=== PATIENT | male | born 1995 | race Caucasian/White ===

== ENCOUNTER 2017-10-18 19:34 | Emergency (ER) | payer SELFPAY ==
[2017-10-18 19:34] VITALS: BMI 19.1
[2017-10-18 19:58] VITALS: O2SAT 100
[2017-10-18 21:04] LABS: BASO % 0.2 % (0.0-2.0); HEMATOCRIT 44.1 % (35.0-51.0); LYMPH # 0.4 K/uL (1.0-4.3); LYMPH % 4.6 % (20.0-40.0); MEAN CELL VOLUME 89.4 fL (80.0-94.0); MEAN CORPUSCULAR HEMOGLOBIN 30.2 pg (27.0-31.0); MEAN CORPUSCULAR HGB CONC 33.8 g/dL (33.0-37.0); MEAN PLATELET VOLUME 7.9 fL (7.2-11.7); MONO # 0.3 K/uL (0.0-0.8); MONO % 3.4 % (0.0-10.0); PLATELET COUNT 264 K/uL (130-400); RED CELL DISTRIBUTION WIDTH 13.1 % (11.5-14.5)
--- NOTE | 2017-10-18 21:12 | C.PDOC ---
History Of Present Illness Yakov Mesa is a 21 year old male, with no past medical history, who presents to the emergency department complaining of abdominal pain associated with nausea and vomit onset since this morning. Patient did not take any medication for current symptoms. He denies recent travels, sick contacts, diarrhea or fever. No further medical complaints. PMD: Clinic,Med Surg Time Seen by Provider: 10/18/17 20:26 Chief Complaint (Nursing): Abdominal Pain History Per: Patient History/Exam Limitations: no limitations Onset/Duration Of Symptoms: Days (x1) Current Symptoms Are (Timing): Still Present Pain Scale Rating Of: 7 Location Of Pain/Discomfort: Epigastric Radiation Of Pain To:: None Associated Symptoms: Nausea, Vomiting. denies: Fever, Diarrhea Recent travel outside of the [place]: No Past Medical History Reviewed: Historical Data, Nursing Documentation, Vital Signs Vital Signs: Last Vital Signs Temp 97.7 F 10/18/17 19:55 Pulse 90 10/18/17 21:18 Resp 18 10/18/17 21:18 BP 106/69 10/18/17 21:18 Pulse Ox 100 10/18/17 21:45 Surgical History: No Surg Hx Family History: States: Unknown Family Hx, Diabetes - Social History Hx Tobacco Use: No Hx Alcohol Use: No Hx Substance Use: No - Immunization History Hx Tetanus Toxoid Vaccination: No Hx Influenza Vaccination: No Hx Pneumococcal Vaccination: No Review Of Systems Except As Marked, All Systems Reviewed And Found Negative. Constitutional: Negative for: Fever Gastrointestinal: Positive for: Nausea, Vomiting, Abdominal Pain. Negative for : Diarrhea Physical Exam - Physical Exam Appears: No Acute Distress Skin: Normal Color, Warm, Dry Head: Atraumatic, Normacephalic Neck: Normal, Normal ROM, Supple Cardiovascular: Rhythm Regular Respiratory: Normal Breath Sounds, No Accessory Muscle Use Gastrointestinal/Abdominal: Bowel Sounds, Tenderness (epigastric), No Guarding, No Rebound Extremity: Normal ROM, No Deformity, No Swelling Neurological/Psych: Oriented x3, Normal Speech ED Course And Treatment - Laboratory Results Result Diagrams: 10/18/17 21:00 10/18/17 21:00 O2 Sat by Pulse Oximetry: 100 (RA) Pulse Ox Interpretation: Normal Medical Decision Making Medical Decision Making: Initial Impression: abdominal pain Initial Plan: --Comp Metabolic Panel --Lipase --CBC w/ differential --Pepcid 20 mg IVP --Toradol 30 mg IVP --Zofran Inj 4 mg IVP --reevaluation- 21:40 -Patient feels better and tolerated PO, he will be discharged home with follow- up with PMD in x2 days. Discussed results and plan with patient who expresses understanding. Counseling was provided regarding the diagnosis and prognosis. All questions answered and there is agreement with the plan to discharge home with instructions. Patient stable for discharge. Return if symptoms persist or worsen. Disposition Counseled Patient/Family Regarding: Studies Performed, Diagnosis, Need For Followup, Rx Given - Disposition Disposition: HOME/ ROUTINE Disposition Time: 21:43 Condition: IMPROVED Additional Instructions: follow up with your doctor in 2 days call to make an appointment take medications as prescribed return to hospital if symptoms worsens or progress Prescriptions: Famotidine [Pepcid] 20 mg PO BID #20 tab Ondansetron ODT [Zofran ODT] 4 mg PO TID PRN #12 odt PRN Reason: Nausea/Vomiting Instructions: Abdominal Pain (ED) Forms: [facility] (Sudanese), General Discharge Instructions - Clinical Impression Clinical Impression: Abdominal pain - Scribe Statement Bakari Wilhelm Provider Attestation: All medical record entries made by the Scribe were at my direction and personally dictated by me. I have reviewed the chart and agree that the record accurately reflects my personal performance of the history, physical exam, medical decision making, and the department course for this patient. I have also personally directed, reviewed, and agree with the discharge instructions and disposition.
[2017-10-18 21:18] VITALS: BP 106/69; PULSE 90; RESP 18
[2017-10-18 21:18] LABS: ALB/GLOB RATIO 1.7 (1.0-2.1); ALKALINE PHOSPHATASE 65 U/L (38-126); ALT/SGPT 33 U/L (21-72); AST/SGOT 22 U/L (17-59); BILIRUBIN,TOTAL 1.2 mg/dL (0.2-1.3); BLOOD UREA NITROGEN 12 mg/dL (9-20); CALCIUM 8.9 mg/dl (8.6-10.4); CARBON DIOXIDE 27 mmol/L (22-30); CHLORIDE 105 mmol/L (98-107); GFR AFRICAN-AMERICAN > 60; GLUCOSE,RANDOM 112 mg/dL (75-110); POTASSIUM 4.1 mmol/L (3.6-5.2); SODIUM 143 mmol/L (132-148); TOTAL PROTEIN 7.4 g/dL (6.3-8.3)
[2017-10-18 21:34] LABS: NEUTROPHIL 91 % (50-75); REACTIVE LYMPHOCYTES 2 % (0-0); TOTAL CELLS COUNTED 100
[2017-10-18 21:47] VITALS: TEMP 98.2
== END 2017-10-18 22:06 | disposition home or self-care (01) ==
LOC: C.ER 19:34
DX: R10.13 Epigastric pain (principal)
CPT/HCPCS: 80053; 83690; 85025; 96374; 96375; 99285; J1885; J2405

== ENCOUNTER 2018-07-19 19:15 | Emergency (ER) | payer OTHER ==
[2018-07-19 19:15] VITALS: BMI 19.1
[2018-07-19 20:08] VITALS: BP 119/77; PULSE 84; TEMP 99.3; O2SAT 100
--- NOTE | 2018-07-19 20:35 | C.PDOC ---
History Of Present Illness 22 yo male w/o significant PMHx come in for evaluation of sore throat, nasal congestion, dry cough gradually developed for past 2 days. Otherwise, pty denies fever, chills, headache, dizziness, drooling, dysphagia, dyspnea, CP, palpitation, diaphoresis, abd. pain, N/V/D, back pain, UTI sx, denies recent travel or known sick contact. AT the time of evaluation, pt is comfortable, not in any apparent distress. Time Seen by Provider: 07/19/18 20:13 Chief Complaint (Nursing): Cough, Cold, Congestion History Per: Patient Past Medical History Reviewed: Historical Data, Nursing Documentation, Vital Signs Vital Signs: Last Vital Signs Temp 99.3 F 07/19/18 20:04 Pulse 84 07/19/18 20:04 Resp 16 07/19/18 20:04 BP 119/77 07/19/18 20:04 Pulse Ox 100 07/19/18 20:04 - Medical History PMH: No Chronic Diseases Family History: States: Unknown Family Hx, Diabetes - Social History Hx Tobacco Use: No Hx Alcohol Use: Yes Hx Substance Use: No - Immunization History Hx Tetanus Toxoid Vaccination: No Hx Influenza Vaccination: No Hx Pneumococcal Vaccination: No Review Of Systems Except As Marked, All Systems Reviewed And Found Negative. Constitutional: Positive for: Malaise. Negative for: Fever, Chills ENT: Positive for: Nose Discharge, Nose Congestion, Throat Pain, Throat Swelling. Negative for: Ear Discharge Respiratory: Positive for: Cough. Negative for: Shortness of Breath, SOB with Excertion, Pleuritic Pain, Sputum, Wheezing Gastrointestinal: Negative for: Nausea, Vomiting, Constipation Genitourinary: Negative for: Dysuria Musculoskeletal: Negative for: Neck Pain Skin: Negative for: Rash Neurological: Negative for: Headache, Dizziness Physical Exam - Physical Exam Appears: Well, Non-toxic, No Acute Distress Skin: Normal Color, Warm, Dry, No Rash Head: Normacephalic Eye(s): bilateral: PERRL Ear(s): Bilateral: Normal Nose: No Flaring, Discharge (scant, clear B/L) Oral Mucosa: Moist, No Drooling Tongue: Normal Appearing Lips: Normal Appearing Throat: Erythema (mod B/L), No Exudate, No Drooling, Other (mild edema B/L) Neck: Supple, Other ((-) meningeal sign) Cardiovascular: Rhythm Regular, No Murmur, No JVD Respiratory: No Decreased Breath Sounds, No Accessory Muscle Use, No Stridor, No Wheezing Gastrointestinal/Abdominal: Soft, No Tenderness, No Distention, No Guarding Back: No CVA Tenderness Extremity: Normal ROM, No Pedal Edema, No Deformity, No Swelling Neurological/Psych: Oriented x3, Normal Speech ED Course And Treatment O2 Sat by Pulse Oximetry: 100 Pulse Ox Interpretation: Normal Progress Note: On re-eavl, pt is afebrile, hemodynamicaly stable, not in any apparent distress. Tolerate Po well in ED. Pulse Ox 100% RA. ENT:exam c/w acute pharyngitis. Neck: Supple, (-) meningeal sign. Lungs: CTA B/L, BS equal B/L. CVS: (+)S1S2, reg. Abd: benign, (-) guarding, (-) rebound. Neurologicaly intact. pt advised on course of ds. ref. to f/u with ENT in 1-2 days for re-evaluation. Return to ED if any worsening or new changes. Disposition Counseled Patient/Family Regarding: Diagnosis, Need For Followup, Rx Given - Disposition Referrals: Konrad Chacon MD [Staff Provider] - Disposition: HOME/ ROUTINE Disposition Time: 20:31 Condition: STABLE Additional Instructions: Encourage fluids Warm salty water throat gurgles Take medication as prescribed Follow up with ENT in 2-3 days for re-evaluation. return to ED if any worsening or new changes. Prescriptions: Azithromycin [Zithromax] 250 mg PO DAILY #5 tab Ibuprofen [Motrin] 1 tab PO BID PRN #14 tab PRN Reason: Pain Instructions: Sore Throat in Adults - Clinical Impression Clinical Impression: Pharyngitis
[2018-07-19 20:55] VITALS: RESP 18
== END 2018-07-19 20:59 | disposition home or self-care (01) ==
LOC: C.ER 19:15
DX: J02.9 Acute pharyngitis, unspecified (principal)

== ENCOUNTER 2019-03-30 14:58 | Outpatient (CLI) | payer OTHER | END 2019-03-30 14:59 | disposition home or self-care (01) | LOC: C.LAB 14:58 | DX: Z00.00 Encounter for general adult medical examination without abnormal findings (principal) ==